=== PATIENT | male | born 1935 | race Caucasian/White ===

== ENCOUNTER 2023-05-21 14:29 | Outpatient (AMB) | payer MEDICARE, SELFPAY ==
--- NOTE | 2023-05-21 14:31 | MHC.OFFVIS ---
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 He is very pleasant active elderly gentleman seems to be diagnose atrial fibrillation around 2006 is the last EKG I could spot in [facility]. At that time had echocardiogram done which had shown preserved LV ejection fraction with moderate left atrial enlargement. He was never offered rhythm control approach at that point in time. He has been managed with oral anticoagulation therapy management of blood pressure. He said he has had hypertension for many years which is generally well controlled. He has no history of known vascular disease, stroke, coronary artery disease, myocardial infarction, congestive heart failure. He recently was noted to have slightly slower heart rate was referred for further evaluation. 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 Denies any worsening shortness of breath, fatigue. Denies any lightheadedness, syncope. He has been on warfarin therapy for many years which is generally well managed and has had no bleeding issues or neurologic events. He denies any heart failure symptoms. [facility], [facility] Medical History (Updated 05/21/23 @ 15:31 by Jordi Tamayo MD) HTN (hypertension) Chronic atrial fibrillation Review of Systems Const Denies chills, Denies daytime sleepiness, Denies fatigue, Denies fever(s), Denies frequent falls, Denies poor appetite, Denies snoring, Denies stops breathing during sleep, Denies weakness, Denies weight gain and Denies weight loss Eyes Denies loss of vision ENT Denies dizziness and Denies hearing loss Card Denies chest pain, Denies claudication, Denies leg edema, Denies lightheadedness, Denies palpitations, Denies dyspnea, Denies dyspnea on exertion and Denies orthopnea Resp Denies cough, Denies excessive phlegm production, Denies dyspnea, Denies dyspnea on exertion, Denies snoring and Denies wheezing GI Denies abdominal pain, Denies hematochezia, Denies change in bowel habits, Denies nausea and Denies vomiting Denies dysuria and Denies urinary frequency Musc Denies arthralgias, Denies muscle weakness, Denies numbness and Denies other (frequent falls) Skin/Breast Denies nail changes and Denies rash Neuro Denies Abnormal speech present, Denies dizziness, Denies frequent falls, Denies loss of vision, Denies memory loss, Denies numbness and Denies weakness Psych Denies depression and Denies memory loss Endo Denies fatigue and Denies palpitations Mahesh/Lymph Reports easy bruising and Reports other (anemia) Aller/Immun Denies wheezing Physical Exam Vital Signs: Last Vital Signs Pulse 57 05/21/23 14:32 BP 120/76 05/21/23 14:32 BMI result Body Mass Index 28.0 Const General: cooperative, comfortable, no acute distress, well developed, alert, awake and Physically active Nutritional Appearance: average body habitus and well nourished Orientation/consciousness: patient oriented x3 Limitations: no limitations HEENT Head: Yes normocephalic and Yes atraumatic Neck Neck: Yes trachea midline, Yes supple and Yes no JVD Resp Effort & Inspection: normal respiratory effort Auscultation: clear to auscultation bilaterally Cardio Jugular venous distension: no JVD Rate: bradycardic Rhythm: abnormal rhythm irregularly irregular Heart sounds: S1 normal heart sound present, S2 normal heart sound present, no click, no gallops and Murmur heart sound present systolic early Peripheral pulses: Peripheral pulses 2+ throughout GI Auscultation: normal bowel sounds Skin General skin exam: no rashes or lesions noted Neuro General: patient oriented x3 and no focal motor deficits Speech: No Abnormal speech present Extrem General: Yes no clubbing, cyanosis or edema Office Procedures EKG Details: EKG shows atrial fibrillation with slow ventricular response with nonspecific ST changes [id number], Complete Assessment & Plan Assessment & Plan (1) Chronic atrial fibrillation: Code(s): I48.20 - Chronic atrial fibrillation, unspecified Plan: Patient with long-standing atrial fibrillation and moderate left atrial enlargement suggestive structural changes 16 years ago. We discussed management of atrial fibrillation. He is currently doing well without any overt symptoms. Will continue rate control strategy at this point time although he is on the bradycardic side, see below. Continue warfarin therapy being followed by [facility]. Maintain target INR between 2 and 3. He has been a long standing warfarin therapy and well managed warfarin therapy usually is non inferior to direct oral anticoagulant therapy. (2) HTN (hypertension): Code(s): I10 - Essential (primary) hypertension Plan: Longstanding hypertension which is currently well optimized on dual therapy. Advised to continue current therapy. Importance of good blood pressure control was discussed. His amlodipine was recently increased. Advised to monitor blood pressure at home maintain a log. Goal blood pressure less than 130/84. Low-salt diet was discussed (3) Bradycardia: Code(s): R00.1 - Bradycardia, unspecified Plan: Patient noted to have slow ventricular response to atrial fibrillation which is usually suggestive of AV conduction disorder. He has no obvious symptoms related to this. There is no clear indication for pacing therapy. Would avoid rate lowering medication the future. Will obtain Holter monitor to assess for significant pauses that may require pacing therapy. Symptoms of reduced cardiac output were discussed with him. Will follow up in the clinic in 1 year's time, sooner p.r.n.. Thank you for allowing me to partake in his care Orders: Orders ECG 3 day holter monitor 05/21/23 I48.20 - Chronic atrial fibrillation, unspecified CA echo transthoracic complete 05/21/23 I48.20 - Chronic atrial fibrillation, unspecified Coding Level of Care Code New Pt Level 4 (02211) Diagnoses Chronic atrial fibrillation I48.20 HTN (hypertension) I10 Bradycardia R00.1 CPT Codes EKG - CPT: 10662-[id number], Complete ([id number])
[2023-05-21 14:32] VITALS: BP 120/76; PULSE 57; BMI 28.0
== END 2023-05-21 14:59 | disposition home or self-care (01) ==
PROVIDERS: Visit Provider Internal Medicine Cardiovascular Disease
DX: I48.20 Chronic atrial fibrillation, unspecified (principal); I10 Essential (primary) hypertension; R00.1 Bradycardia, unspecified
CPT/HCPCS: 93010; 99204

== ENCOUNTER → 2023-05-21 14:29 | Outpatient (BNVA) | payer MEDICARE, SELFPAY | PROVIDERS: Visit Provider Internal Medicine Cardiovascular Disease | DX: I48.20 Chronic atrial fibrillation, unspecified (principal); I10 Essential (primary) hypertension; R00.1 Bradycardia, unspecified; Z79.01 Long term (current) use of anticoagulants | CPT/HCPCS: 93005; 99202 ==

== ENCOUNTER → 2023-06-23 12:42 | Outpatient (REF) | payer MEDICARE, SELFPAY ==
--- NOTE | 2023-06-23 12:46 | CA_ITS ---
Transthoracic Echocardiogram Patient (Last, First, Middle): Zack Bernard H Gender: Male Date of : 1935 Age: 87 Procedure Date: 06/23/2023 Procedure Type: Transthoracic Echocardiogram Location: OP Height: 180.34 cm Weight: 90.72 kg BSA: 2.11 m2 Heart Rate: 37 bpm BP: 170 / 70 mmHg Make Up Editor: LAURYN Referring MD: Jordi Tamayo MD Symptoms: I48.20 - Chronic atrial fibrillation, unspecified Study Quality: Fair ECG Rhythm: Atrial Fibrillation Conclusions: - The left ventricular systolic function is normal. The visually estimated ejection fraction is between 60-65%. - Moderately increased right ventricular cavity size. - No obvious valvular pathology seen on this study. - There is mild dilatation of the ascending aorta measuring 4.10 cm. Findings Left Ventricle Normal left ventricular cavity size. There is mildly increased left ventricular wall thickness. The left ventricular systolic function is normal. The visually estimated ejection fraction is between 60-65%. There is no evidence of regional wall motion abnormalities. Diastolic function is indeterminate on the basis of available data. LV peak GLS -18.4%. Right Ventricle Moderately increased right ventricular cavity size. There is normal right ventricular systolic function. Atria Severe biatrial enlargement. Aortic Valve There is a normal trileaflet aortic valve. There is mild calcification of the aortic valve. There is no aortic valve stenosis. There is trace (trivial) aortic valve regurgitation. Mitral Valve There is mild mitral annular calcification. There is trace mitral valve regurgitation. There is no mitral valve stenosis. Pulmonic Valve There is trace pulmonic valve regurgitation. Tricuspid Valve Normal tricuspid valve structure. There is mild tricuspid valve regurgitation. There is no evidence of pulmonary hypertension. Great Vessels There is mild dilatation of the ascending aorta measuring 4.10 cm. Venous The inferior vena cava is normal in size and collapses greater than 50% with inspiration. Prior Study Comparison No prior study available for comparison. Recommendations, Care & Conclusions No obvious valvular pathology seen on this study. Measurements 2D Linear Measurements IVSd: 1.13 0.6-0.9/0.6-1.0 cm LVIDd: 4.59 3.9-5.3/4.2-5.9 cm LVIDd Index: 2.18 2.4-3.2/2.2-3.1 cm/m2 LVIDs: 1.99 2.0-3.6 cm LVPWd: 1.06 0.7-1.1 cm LA Diam: 4.50 2.7-3.8/3.0-4.0 cm LAIDs Index: 2.13 1.5-2.3 cm/m2 LV Mass: 223.56 67-162/88-224 g LV Mass Index: 105.95 43-95/49-115 g/m2 LVOT Diam: 2.00 3.0+(-)1.3 cm 2D Systolic Function EF 4C: 64.90 >55% EF 2C: 71.20 >55% EF BiP: 67.90 >55% Mitral Valve MV Pk E: 1.35 MV PK A: 0.34 MV Decel Time: 210.00 E/A: 4.00 E'Lateral: 9.89 E'Medial: 8.11 E/E' Med: 16.60 E/E' Lat: 13.70 PHT: 62.00 MVA PHT: 3.55 Decel Kent: 6.41 Aortic Valve AoV Pk Steve: 1.81 AoV Mn Steve: 1.23 AoV VTI: 0.45 AoV Pk Grad: 13.00 Aov Mn Grad: 7.00 AJAY Cont.VTI: 1.83 LVOT LVOT Pk Steve: 1.10 LVOT Mn Steve: 0.73 LVOT VTI: 0.26 LVOT Pk Grad: 5.00 LVOT Mn Grad: 2.00 LVOT Diam: 2.00 LVOT Area: 3.14 Diastolic Function MV Pk E: 1.35 MV Pk A: 0.34 E/A: 4.00 E'Medial: 8.11 E/E' Med: 16.60 E' Laterial: 9.89 E/E' Lat: 13.70 Right Ventricle TAPSE (mm): 24.40 TVS' Steve: 14.30 Tricuspid Valve TR Pk Steve: 2.16 TR Pk Grad: 19.00 RA Press: 3.00 RVSP: 22.00 Great Vessels Aorta Sinus of Valsalva: 3.90 2.0-3.5 cm Ao Asc: 4.10 2.1-3.4 cm Pulmonary Valve PV Pk Steve: 1.02 Peak PV Grad: 4.00 Updated in Other Vendor System with Status of Final Allen Kruger MD electronically signed on 06/24/2023 11:50:13 AM with status of Final
--- NOTE | 2023-06-23 12:46 | HM_ITS ---
Conclusion: 1. Patient was monitored for total period of 3 days 2. Baseline was atrial fibrillation with slow ventricular response throughout the study with average heart of 46 beats per minute 3. No significant pauses noted 4. Occasional PVCs noted 5. No patient reported events MTDD
== END ==
LOC: HO.CARD 12:42
PROVIDERS: PCP Internal Medicine; Visit Provider Internal Medicine Cardiovascular Disease
DX: I48.20 Chronic atrial fibrillation, unspecified (principal)
CPT/HCPCS: 93242; 93306; 93356

== ENCOUNTER → 2023-06-23 12:46 | Outpatient (BNV) | payer MEDICARE, SELFPAY | PROVIDERS: PCP Internal Medicine; Visit Provider Internal Medicine | DX: I48.20 Chronic atrial fibrillation, unspecified (principal) | CPT/HCPCS: 93244; 93306 ==

== ENCOUNTER 2023-07-03 13:39 | Outpatient (AMB) | payer MEDICARE, SELFPAY ==
--- NOTE | 2023-07-03 13:44 | MHC.OFFVIS ---
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 He continues to have no symptoms. He continues to remain very active. Denies any worsening shortness of breath or exercise intolerance. Denies any lightheadedness or syncope. Denies any heart failure symptoms. His recent Holter monitor did show frequent slow ventricular response most of the time throughout the day. He did not report any symptoms. Echocardiogram showed normal LV systolic function with moderately increased right ventricular size with mildly dilated ascending aorta at 4.1 cm. Denies any exertional chest pain. [facility] Medical History HTN (hypertension) Chronic atrial fibrillation Review of Systems Const Denies chills, Denies fatigue, Denies fever(s), Denies frequent falls, Denies weakness, Denies weight gain and Denies weight loss ENT Denies dizziness Card Denies chest pain, Denies leg edema, Denies lightheadedness, Denies palpitations, Denies dyspnea, Denies dyspnea on exertion, Denies orthopnea and Denies other (loss of consciousness) Resp Denies cough, Denies dyspnea and Denies dyspnea on exertion GI Denies hematochezia and Denies change in stool character Musc Denies abnormal gait, Denies muscle weakness, Denies numbness, Denies radiating pain into limb and Denies tingling Neuro Denies Abnormal speech present, Denies abnormal gait, Denies dizziness, Denies frequent falls, Denies numbness, Denies tingling and Denies weakness Endo Denies fatigue and Denies palpitations Physical Exam Vital Signs: Last Vital Signs Pulse 44 L 07/03/23 13:45 BP 130/76 07/03/23 13:45 BMI result Body Mass Index 27.7 Const General: cooperative, comfortable, no acute distress, well developed, alert, awake and Physically active Nutritional Appearance: average body habitus and well nourished Orientation/consciousness: patient oriented x3 Limitations: no limitations Neck Neck: Yes trachea midline, Yes supple and Yes no JVD Resp Effort & Inspection: normal respiratory effort Auscultation: clear to auscultation bilaterally Cardio Jugular venous distension: no JVD Rate: bradycardic Rhythm: abnormal rhythm irregularly irregular Heart sounds: S1 normal heart sound present, S2 normal heart sound present, no click, no gallops and Murmur heart sound present systolic early Peripheral pulses: Peripheral pulses 2+ throughout GI Auscultation: normal bowel sounds Skin General skin exam: no rashes or lesions noted Neuro General: patient oriented x3 and no focal motor deficits Speech: No Abnormal speech present Extrem General: Yes no clubbing, cyanosis or edema Assessment & Plan Assessment & Plan (1) Chronic atrial fibrillation: Code(s): I48.20 - Chronic atrial fibrillation, unspecified Plan: Chronic atrial fibrillation with slow ventricular response without any symptoms. He remains highly active. I do not see any indication for pacemaker therapy at this point time. Avoid rate lowering medications in the future. He is advised to call me with any new symptoms in terms of lightheadedness, worsening exercise tolerance and/or syncope. Continue warfarin therapy. Target INR between 2 and 3. (2) HTN (hypertension): Code(s): I10 - Essential (primary) hypertension Plan: Hypertension which is currently well optimized on dual therapy with amlodipine hydrochlorothiazide. Continue the same. Advised to monitor blood pressure at home maintain a log. Goal blood pressure less than 130/84. Low-salt diet was discussed. 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 Currently having no symptoms. No interventions from surgical perspective required. Continue aggressive blood pressure control which is well optimized. Follow-up echocardiogram in 1 year's time. Will follow up in the clinic 1 year's time, sooner p.r.n.. Thank you for allowing me to partake in his care Coding Level of Care Code Est Pt Level 4 (86958) Diagnoses Chronic atrial fibrillation I48.20 HTN (hypertension) I10 Enlarged thoracic aorta I77.89
[2023-07-03 13:45] VITALS: BP 130/76; PULSE 44; BMI 27.7
== END 2023-07-03 14:01 | disposition home or self-care (01) ==
PROVIDERS: Visit Provider Internal Medicine Cardiovascular Disease
DX: I48.20 Chronic atrial fibrillation, unspecified (principal); I10 Essential (primary) hypertension; I77.89 Other specified disorders of arteries and arterioles
CPT/HCPCS: 99214

== ENCOUNTER → 2023-07-03 13:39 | Outpatient (BNVA) | payer MEDICARE, SELFPAY | PROVIDERS: Visit Provider Internal Medicine Cardiovascular Disease | DX: I48.20 Chronic atrial fibrillation, unspecified (principal); I10 Essential (primary) hypertension; I77.89 Other specified disorders of arteries and arterioles | CPT/HCPCS: 99212 ==

== ENCOUNTER → 2024-06-21 12:39 | Outpatient (REF) | payer MEDICARE, SELFPAY ==
--- NOTE | 2024-06-21 12:42 | CA_ITS ---
Transthoracic Echocardiogram Patient (Last, First, Middle): Zack Bernard H Gender: Male Date of : 1935 Age: 88 Procedure Date: 06/21/2024 Procedure Type: Transthoracic Echocardiogram Location: OP Height: 180.34 cm Weight: 86.18 kg BSA: 2.06 m2 Heart Rate: 39 bpm BP: 138 / 60 mmHg Mobile Heavy Equipment Mechanic: KATHY Referring MD: Jordi Tamayo MD Part Time Flexible Clerk: Jordi Tamayo MD Symptoms: I77.89 - Other specified disorders of arteries and arterioles Study Quality: Adequate ECG Rhythm: Atrial Fibrillation w SVR Conclusions: - 1. Normal LV ejection fraction of 60 65% with restrictive filling pattern 2. Moderately dilated right-sided chambers 3. At least mildly dilated left atrium 4. Calcific aortic and mitral valve changes noted with normal cardiac valvular Dopplers 4. Normal RV systolic pressure with moderately elevated right atrial pressures 5. Mildly dilated ascending aorta at 4 cm 6. No gross pericardial effusion Findings Left Ventricle Normal left ventricular size, thickness, and systolic function. The visually estimated ejection fraction is between 60-65%. Spectral Doppler is indicative of a restrictive filling pattern. Right Ventricle Moderately increased right ventricular cavity size. There is normal right ventricular systolic function. Atria The left atrium is mildly dilated. There is lipomatous hypertrophy of the interatrial septum. There is no evidence of interatrial shunt. The right atrium is moderately dilated. Aortic Valve There is mild calcification of the aortic valve. There is moderate thickening of the aortic valve. There is no aortic valve stenosis. There is no aortic valve regurgitation. Mitral Valve There is mild anterior and moderate posterior mitral leaflet thickening. There is moderate mitral annular calcification. There is mild mitral valve regurgitation. There is no mitral valve stenosis. Pulmonic Valve The pulmonic valve was not well visualized. Tricuspid Valve Likely normal tricuspid valve structure and function. There is mild to moderate tricuspid valve regurgitation. Moderately elevated right atrial pressure. There is no evidence of pulmonary hypertension. Great Vessels There is mild dilatation of the ascending aorta measuring 4.00 cm. Small plaque is seen in the sino tubular ridge and ascending aorta. Venous The inferior vena cava is moderately dilated and collapses less than 50% with inspiration. Pericardium/Pleural There is no evidence of pericardial effusion. Prior Study Comparison No significant change compared to prior study dated: 06/23/2023. Measurements 2D Linear Measurements IVSd: 1.06 0.6-0.9/0.6-1.0 cm LVIDd: 4.89 3.9-5.3/4.2-5.9 cm LVIDd Index: 2.37 2.4-3.2/2.2-3.1 cm/m2 LVIDs: 2.88 2.0-3.6 cm LVPWd: 0.80 0.7-1.1 cm LA Diam: 4.40 2.7-3.8/3.0-4.0 cm LAIDs Index: 2.14 1.5-2.3 cm/m2 LV Mass: 198.24 67-162/88-224 g LV Mass Index: 96.23 43-95/49-115 g/m2 LVOT Diam: 2.10 3.0+(-)1.3 cm 2D Systolic Function EF 4C: 63.70 >55% Mitral Valve MV Pk E: 1.28 E'Lateral: 7.28 E'Medial: 7.35 E/E' Med: 17.40 E/E' Lat: 17.60 Aortic Valve AoV Pk Steve: 1.50 AoV Pk Grad: 9.00 AJAY: 1.95 LVOT LVOT Pk Steve: 0.85 LVOT Mn Steve: 0.59 LVOT VTI: 0.20 LVOT Pk Grad: 3.00 LVOT Mn Grad: 2.00 LVOT Diam: 2.10 LVOT Area: 3.46 Diastolic Function MV Pk E: 1.28 E'Medial: 7.35 E/E' Med: 17.40 E' Laterial: 7.28 E/E' Lat: 17.60 Right Ventricle TAPSE (mm): 18.90 TVS' Steve: 8.45 Tricuspid Valve TR Pk Steve: 2.57 TR Pk Grad: 26.00 RA Press: 8.00 RVSP: 33.00 Great Vessels Aorta Sinus of Valsalva: 3.70 2.0-3.5 cm Ao Asc: 4.00 2.1-3.4 cm Ao Arch: 3.80 Pulmonary Valve PV Pk Steve: 1.03 Peak PV Grad: 4.00 ME Pk Steve: 2.23 Updated in Other Vendor System with Status of Final Jordi Tamayo MD electronically signed on 06/22/2024 5:07:18 PM with status of Final
--- OUTSIDE RECORDS SUMMARY | 2024-06-23 15:29 | XMS_ITS | Data Portability ---
Author Organization [facility] [employer] [facility], Main Office Address [address], [address] [place] [address] Care Team Providers Care Cylinder Checker Name Role Phone FORMERLY NAMED [facility] OTHER NAZIA ARTHUR Primary Care Provider Assessment Encounter Date Assessment Date Assessment LastModified by Organization Details LastModified Time 02/09/2024 02/09/2024 Spent 45 reviewing records, seeing pt, consulting with staff, arranging for d/c, and documenting llevheim Not available 02/09/2024 18:18:29 Plan of Treatment Reminders Order Date Submit Date Provider Last Modified By Organization Details Last Modified Time Details Appointments None record ed. Lab None record ed. Referral None record ed. Procedures None record ed. Surgeries None record ed. Imaging None record ed. Medication Orders None record ed. Patient TargetsNo targets recorded. Patient InstructionsNo instructions recorded. Reason for Referral None Reported. Problems Name Problem SNOMED Code Status Onset Date Resolution Date Notes Provider Name and Address Organization Details Recorded Time Hypertensive disorder 56355182 Active 2023 DILMA Rubi [address] , [address], [place], [address], [facility] 4 10:32:57 Atrial fibrillation 31770884 Active 2023 DILMA Rubi [address] , [address], [place], [address], [facility] [employer] [facility] 4 10:33:03 Chronic kidney disease 724445476 Active 2023 DILMA Rubi [address] , [address], [place], [address], [facility] [employer] [facility] 4 10:33:09 Fracture of neck of femur 2135298 Active 2023 DILMA Rubi [address] , [address], [place], [address], [facility] [employer] [facility] 4 10:33:20 Acute retention of urine 263116391 Active 2023 Leobardo Barboza MD [address], [address], [place], [address], [facility] 4 12:29:00 Seasonal allergy 471115632 Active 2023 Leobardo Barboza MD [address], [address], [place], [address], [facility] [employer] [facility] 4 12:31:28 Fracture of neck of femur 2363287 Active 2023 Olivia Pelayo MD [address] , [address], [place], [address], [facility] 4 18:09:41 Problem Notes None recorded. Medical Equipment None Reported. Allergies Allergen ID Allergen Name Allergen Category Reaction Reaction Severity Criticality Documentation Date Start Date Code Code System Note Provider Name and Address Organization Details Recorded Time 27185 tramadol medicatio n Not available Not available Not available 01/17/2024 34664 RxNorm DILMA Rubi [address] [facility], [address], [place], [address], [facility] 4 10:29:47 14433 oxycodone medicatio n Not available Not available Not available 01/17/2024 7804 RxNorm DILMA Rubi [address] [facility], [address], [place], [address], [facility] 4 10:29:54 08869 Iodinated contrast media (substanc e) medicatio n Not available Not available Not available 01/17/2024 57357 2004 SNOMED Kiarra MaryDILMA peter [address] , [address], [place], [address], [facility] 4 10:30:07 Medications Not known to be on any medication Vitals Date Recorded Heart rate Respiratory rate Body temperature Oxygen saturation Oxygen saturation in Arterial blood by Pulse oximetry Systolic blood pressure Diastolic blood pressure Provider Name and Address Organization Details Last Updated DateTime 4 52 /min 18 /min 98 [degF] 97 % 97 % 124 mm[Hg] 74 mm[Hg] WOODY ENGEL NP [address] [facility], [address], [place], [address], [facility] 4 11:55:25 Date Recorded Body weight Body mass index (BMI) Body height Heart rate Respiratory rate Body temperature Oxygen saturation Oxygen saturation in Arterial blood by Pulse oximetry Systolic blood pressure Diastolic blood pressure Provider Name and Address Organization Details Last Updated DateTime 4 05381.9 6 g 27.1 kg/m2 177.8 cm 48 /min 18 /min 97.6 [degF] 98 % 98 % 118 mm[Hg] 54 mm[Hg] Olivia Pelayo MD [address] [facility], [facility] [address], [place], [address], [facility] 4 17:39:32 Date Recorded Systolic blood pressure Diastolic blood pressure Provider Name and Address Organization Details Last Updated DateTime 01/26/2024 124 mm[Hg] 74 mm[Hg] Ekaterina Mel [address] [facility], [address], [place], [address], [facility] 01/26/2024 11:38:07 Date Recorded Systolic blood pressure Diastolic blood pressure Provider Name and Address Organization Details Last Updated DateTime 01/30/2024 128 mm[Hg] 76 mm[Hg] Ekaterina Leal [address] [place] [address], [facility] [address], [place], [address], [facility] 01/30/2024 09:31:35 Social History Question Answer Notes LastModified by Organization Details LastModified Time Tobacco Smoking Status Former Smoker quit 1970 Leobardo Barboza MD [address] [facility], [facility] [address], [place], [address], [facility] 01/20/2024 12:38:55 Do You Have An Advance Directive? Yes Information not available 02/09/2024 What Is Your Level Of Alcohol Consumption? Occasional Information not available 02/09/2024 How Many Times Per Week Do You Consume Alcohol? 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 SingleLevelHouse With And [place] Information not available 02/09/2024 Legal Guardian? No Informati on not available 02/09/2024 Do You Have A Medical Power Of Table Cover Folder? Yes Not Invoked Information not available 02/09/2024 What Was The Date Of Your Most Recent Tobacco Screening? 02/09/2024 Information not available 02/09/2024 Do You Have An Out Of Hospital DNR? Yes Information not available 02/09/2024 Have You Ever Been Counseled For Unhealthy Alcohol Use? No Information not available 02/09/2024 What Is Your Relationship Status? Information not available 02/09/2024 How Much Tobacco Do You Smoke? No Information not available 02/09/2024 Do You Use Any Illicit Or Recreational Drugs? No Information not available 02/09/2024 Has Tobacco Cessation Counseling Been Provided? No N/a As Pt No Longer Smokes Information not available 02/09/2024 Do You Or Have You Ever Used Any Other Forms Of Tobacco Or Nicotine? No Information not available 02/09/2024 Sex: Unknown Functional Status None recorded. Mental Status None recorded. Family History Nothing Reported Notes:n/c Medical History No medical history recorded. Immunizations Vaccine Type Date Status Note Provider Nam e and Address Organization Details Recorded Time influenza, unspecified formulation 07/26/2021 completed Sarah Donohue [facility] 01/22/2024 16:19:26 SARS-COV-2 (COVID-19) vaccine, UNSPECIFIED 10/28/2020 tomasa Donohue [facility] 01/22/2024 16:19:43 SARS-COV-2 (COVID-19) vaccine, UNSPECIFIED 11/26/2020 tomasa Donohue [facility] 01/22/2024 16:19:49 Past Encounters Encounter ID Performer Location Encounter Start Date Encounter Closed Date Diagnosis/Indication Diagnosis SNOMED-CT Code Diagnosis ICD10 Code [id number] Kiarra DILMA Moreno JUAN CARLOS AT [address] [address] 01/17/2024 10:30:13 01/28/2024 08:17:46 Fracture of neck of femur 7893063 S72.001D Atrial fibrillation 4943 6004 I48.21 Chronic ki dney disease 710231946 N18.31 Hypertensive disorder 38 259533 I10 [id number] MD JUAN CARLOS Benson AT [address] [address] 01/20/2024 12:17:13 01/28/2024 09:55:59 Fracture of neck of femur 2917940 S72.001D Atrial fibrillation 4943 6004 I48.21 Chronic ki dney disease 117763002 N18.31 Hypertensive disorder 38 057502 I10 Acute rete ntion of urine 263128737 R33.8 Leukocytosis 671698069 D 72.828 Chronic id iopathic constipation 65264235 K59.04 Seasonal allergy 2667567 04 J30.2 Asthenia 44044774 R53.1 [id number] Ekaterina RANGEL AT [address] [address] 01/23/2024 12:17:23 01/28/2024 10:54:23 Fracture of neck of femur 6661566 S72.001D Asthenia 87196511 R53.1 Atrial fibrillation 4943 6004 I48.21 Hypertensive disorder 38 359306 I10 Acute rete ntion of urine 449655176 R33.8 Leukocytosis 659282117 D 72.828 [id number] Ekaterina RANGEL AT [address] [address] 01/26/2024 11:37:38 01/28/2024 11:17:15 Fracture of neck of femur 4103963 S72.001D Asthenia 89626947 R53.1 Atrial fibrillation 4943 6004 I48.21 Hypertensive disorder 38 588362 I10 [id number] Ekaterina RANGEL AT [address] [address] 01/30/2024 09:31:04 02/02/2024 19:09:06 Fracture of neck of femur 5287893 S72.001D Atrial fibrillation 4943 6004 I48.21 Hypertensive disorder 38 734937 I10 [id number] Ekaterina Leal JUAN CARLOS AT [address] [address] 02/02/2024 11:40:38 02/04/2024 10:14:12 Fracture of neck of femur 9247003 S72.001D Atrial fibrillation 4943 6004 I48.21 Hypertensive disorder 38 038214 I10 [id number] WOODY ENGEL NP JU[facility] CARLOS AT [address] [address] 02/04/2024 11:51:11 02/05/2024 16:26:20 Fracture of neck of femur 2089153 S72.001D Atrial fibrillation 4943 6004 I48.21 Hypertensive disorder 38 030135 I10 [id number] MD JUAN CARLOS Borges AT [address] [address] 02/09/2024 17:30:32 02/10/2024 15:23:08 Fracture of neck of femur 8348109 S72.001D Atrial fibrillation 4943 6004 I48.21 Hypertensive disorder 38 199332 I10 Asthenia 83645018 R53.1 Acute rete ntion of urine 653955685 R33.8 Leukocytosis 646367819 D 72.828 Chronic ki dney disease 999248167 N18.31 Chronic id iopathic constipation 17034058 K59.04 Health Concerns Section Related Observation LastModified by Organization Detai ls LastModified Time None Recorded Concern Status LastModified by Organization Details LastModified Time None Recorded Advance Directives Directive Y: Payers Encounter Date Sequence Insurance Name Policy Number Policy Smith Covered Member ID Smith Member ID Guarantor Name 01/26/2024 1 [employer] (MEDICARE REPLACEMENT PPO) [id number] Zack Bernard [id number] Zack Bernard 01/30/2024 1 [employer] (MEDICARE REPLACEMENT PPO) [id number] 2 Zack Bernard [id number] Zack Bernard 02/02/2024 1 [employer] (MEDICARE REPLACEMENT PPO) [id number] Zack Bernard [id number] Zack Bernard 02/04/2024 1 [employer] (MEDICARE REPLACEMENT PPO) [id number] 2 Zack Bernard [id number] Zack Bernard 02/09/2024 1 [employer] (MEDICARE REPLACEMENT PPO) [id number] Zack Bernard [id number] Zack Bernard Notes Date Note Type Note Provider Name and Address Organization Details Recorded Time 01/26/2024 text/html pt is an 88 y.o male seen today for acute rounding visit. surgical gela removed today, INR pending. He is a recent admit from hospital presenting after mechanical fall with right hip pain. Imaging positive for fracture. Eval by ortho and underwent ORIF. Patient now WBAT with f/u in place. Of note patient on coumadin at baseline for a fib now restarted with lovenox in place until theraputic. Urinary retention in hospital started on flomax, with successful voiding trial. Noted elevated wbc count felt reactive not due to infection PMH significant fora fibcrf stage [address]ina Leal [address] [place] [address], [address], [place], [address], [facility] 01/26/2024 13:22:04 01/30/2024 text/html pt is a 88 y.o m yudi seen today for acute rounding visit. pt progressing well with therapy. no concerns per nursing. He is a recent admit from hospital presenting after mechanical fall with right hip pain. Imaging positive for fracture. Eval by ortho and underwent ORIF. Patient now WBAT with f/u in place. Of note patient on coumadin at baseline for a fib now restarted with lovenox in place until theraputic. Urinary retention in hospital started on flomax, with successful voiding trial. Noted elevated wbc count felt reactive not due to infection PMH significant fora fibcrf stage [address] Leal [address] [place] [address], [address], [place], [address], [facility] [employer] [facility] 01/30/2024 09:37:01 02/02/2024 text/html pt is a 88 y.o m yudi seen today for acute rounding visit. pt continues to progress well with PT OT, reporting less pain with activity. He is a recent admit from hospital presenting after mechanical fall with right hip pain. Imaging positive for fracture. Eval by ortho and underwent ORIF. Patient now WBAT with f/u in place. Of note patient on coumadin at baseline for a fib now restarted with lovenox in place until theraputic. Urinary retention in hospital started on flomax, with successful voiding trial. Noted elevated wbc count felt reactive not due to infection PMH significant fora fibcrf stage 3 Ekaterina [place] [address] [facility], [address], [place], [address], [facility] 02/02/2024 12:12:31 02/04/2024 text/html Zack is seen tomusa madera for an acute visit. He is an 88 y.o male here at [facility] for continued care and rehab after a brief hosp. related to a fall with right hip fx. Underwent ORIF, harsh. well. So far while here, Zack has been doing well.VSS, HR tending to run on the low side, range 44-85. Mostly 60-70s.Last scanned labs from 01/18, INR elevated at the time, coumadin adjusted. Currently on 1 mg qd, INR due tomorrow. Working with rehab, making good progress. Upon exam, Zack is up in his chair, alert, NAD. Feels good, no complaints. RLE pain overall improved, did use prn pain pill last night. Notes RLE still swollen, but has been improving. Case discussed with nsg., no new issues or concerns. PMH significant fora fibcrf stage 3 WOODY ENGEL NP [address] [facility], [address], [place], [address], [facility] 02/04/2024 12:08:46 02/09/2024 text/html I am seeing this 88 yo man today in anticipation of d/c tomorrow.He has been here since 01/15 after a hospitalization for right hip fx with ORIF.He has progressed well with rehab and they and he feel he is ready to go home.His main issue while here, besides hip pain, was bradycardia, which is baseline for him and he has no sxs.INR was low last wk and coumadin adjusted, back to therapeutic today.He tells me he hasn't used dilaudid in a wk or so, but would like to take it home with him just in case. His PMH includes Afib on coumadin, CKD stage 3B, hx of nephrolithiasis, and HLD. Olivia Pelayo MD [address] [place] [address], [address], [place], [address], [facility] 02/09/2024 18:18:34
== END ==
LOC: HO.CARD 12:39
PROVIDERS: PCP Internal Medicine; Visit Provider Internal Medicine Cardiovascular Disease
DX: I77.89 Other specified disorders of arteries and arterioles (principal)
CPT/HCPCS: 93306

== ENCOUNTER → 2024-06-21 12:42 | Outpatient (BNV) | payer MEDICARE, SELFPAY | PROVIDERS: PCP Internal Medicine; Visit Provider Internal Medicine Cardiovascular Disease | DX: I34.0 Nonrheumatic mitral (valve) insufficiency (principal); I36.1 Nonrheumatic tricuspid (valve) insufficiency; I35.8 Other nonrheumatic aortic valve disorders; I34.81 Nonrheumatic mitral (valve) annulus calcification | CPT/HCPCS: 93306 ==

== ENCOUNTER 2024-07-20 12:32 | Outpatient (AMB) | payer MEDICARE, SELFPAY ==
[2024-07-20 12:35] VITALS: BP 116/64; PULSE 48; BMI 27.1
--- NOTE | 2024-07-20 12:35 | MHC.OFFVIS ---
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 Last summer he had a fall and fractured his right hip, status post surgery at [facility]. He said he is still having restriction related to it and healing from it. He has no cardiac symptoms. Denies any symptoms of orthopnea, PND, leg edema. Denies any symptoms of palpitations. Blood pressures remained well controlled. No bleeding issues or neurologic events. Recent echocardiogram shows preserved LV ejection fraction mildly enlarged thoracic aorta which is stable. He follows his INRs at [facility] Medical History HTN (hypertension) Chronic atrial fibrillation Review of Systems Const Denies chills, Denies fatigue, Denies fever(s), Denies frequent falls, Denies weakness, Denies weight gain and Denies weight loss ENT Denies dizziness Card Denies chest pain, Denies leg edema, Denies lightheadedness, Denies palpitations, Denies dyspnea, Denies dyspnea on exertion, Denies orthopnea and Denies other (loss of consciousness) Resp Denies cough, Denies dyspnea and Denies dyspnea on exertion GI Denies hematochezia and Denies change in stool character Musc Denies abnormal gait, Denies muscle weakness, Denies numbness, Denies radiating pain into limb and Denies tingling Neuro Denies Abnormal speech present, Denies abnormal gait, Denies dizziness, Denies frequent falls, Denies numbness, Denies tingling and Denies weakness Endo Denies fatigue and Denies palpitations Physical Exam Vital Signs: Last Vital Signs Pulse 48 L 07/20/24 12:35 BP 116/64 07/20/24 12:35 BMI result Body Mass Index 27.1 Const General: cooperative, comfortable, no acute distress, well developed, alert, awake and Physically active Nutritional Appearance: average body habitus and well nourished Orientation/consciousness: patient oriented x3 Limitations: no limitations Neck Neck: Yes trachea midline, Yes supple and Yes no JVD Resp Effort & Inspection: normal respiratory effort Auscultation: clear to auscultation bilaterally Cardio Jugular venous distension: no JVD Rate: bradycardic Rhythm: abnormal rhythm irregularly irregular Heart sounds: S1 normal heart sound present, S2 normal heart sound present, no click, no gallops and Murmur heart sound present systolic early Peripheral pulses: Peripheral pulses 2+ throughout GI Auscultation: normal bowel sounds Skin General skin exam: no rashes or lesions noted Neuro General: patient oriented x3 and no focal motor deficits Speech: No Abnormal speech present Extrem General: Yes no clubbing, cyanosis or edema Office Procedures EKG Details: EKG shows atrial fibrillation with slow ventricular response at 48 beats per minute with nonspecific ST T wave changes inferior leads 33758-Gycpgerdzzhltyhyo, Complete Assessment & Plan Assessment & Plan (1) Chronic atrial fibrillation: Code(s): I48.20 - Chronic atrial fibrillation, unspecified Category: Medical Plan: Chronic atrial fibrillation with slow ventricular response without any rate lowering medications. AFib with chronic without any symptoms. Currently on warfarin therapy which has been on for long period of time. Being followed by [facility]. Maintain target INR between 2 and 3. We did mentioned about direct oral anticoagulation therapy, patient wants to continue warfarin therapy. (2) Enlarged thoracic aorta: Code(s): I77.89 - Other specified disorders of arteries and arterioles Category: Medical Plan: Mildly enlarged thoracic aorta. This has remained stable. No interventions required. Continue aggressive blood pressure control which is currently well optimized. See below follow-up echocardiogram now in 2 years time (3) HTN (hypertension): Code(s): I10 - Essential (primary) hypertension Category: Medical Plan: Hypertension which is well optimized on current therapy with amlodipine hydrochlorothiazide. Continue current therapy. Low-salt diet was discussed. Target goal blood pressure less than 130/84. Will follow up in the clinic in 1 year's time, sooner p.r.n.. Thank you for allowing me to partake in his care Coding Level of Care Code Est Pt Level 4 (30036) Complex EM visit Add On G2211 Diagnoses Chronic atrial fibrillation I48.20 Enlarged thoracic aorta I77.89 HTN (hypertension) I10 CPT Codes EKG - CPT: 44737-Nmioxzbxbhftosmgi, Complete ([id number])
== END 2024-07-20 12:56 | disposition home or self-care (01) ==
PROVIDERS: PCP Internal Medicine; Visit Provider Internal Medicine Cardiovascular Disease
DX: I48.20 Chronic atrial fibrillation, unspecified (principal); I77.89 Other specified disorders of arteries and arterioles; I10 Essential (primary) hypertension
CPT/HCPCS: 93010; 99214; G2211

== ENCOUNTER → 2024-07-20 12:32 | Outpatient (BNVA) | payer MEDICARE, SELFPAY | PROVIDERS: PCP Internal Medicine; Visit Provider Internal Medicine Cardiovascular Disease | DX: I48.20 Chronic atrial fibrillation, unspecified (principal); I77.89 Other specified disorders of arteries and arterioles; I10 Essential (primary) hypertension | CPT/HCPCS: 93005; 99212 ==